=== PATIENT | male | born 1975 | race Caucasian/White ===

== ENCOUNTER 2019-05-16 05:14 | Emergency (ER) | payer MEDICARE, MEDICAID ==
[~2019-05-16] VITALS: Ht 170 cm; Wt 60.0 kg
[2019-05-16] MEDS ORDERED: LEVO25TA5 (05:35)
[2019-05-16] MEDS ORDERED: OMEG-105 (05:35)
[2019-05-16] MEDS ORDERED: METF500T (05:35)
[2019-05-16] MEDS ORDERED: OMEP40CA36 (05:35)
[2019-05-16] MEDS ORDERED: SIMV10TA3 (05:35)
[2019-05-16] MEDS ORDERED: ALEN70TA5 (05:35)
--- NOTE | 2019-05-16 06:16 | ED Fall/Injury ---
General Chief Complaint: Trauma-Non Activation Stated Complaint: FALL/ RT HAND PAIN, HIP AND LEG Nursing Triage Note: FALL RIGHT HIP/HAND PAIN Source: patient, family (dad) Exam Limitations: no limitations History of Present Illness Date Seen by Provider: May 16, 2019 Time Seen by Provider: 05:59 Initial Comments Patient presents to ER by private conveyance with dad and chief complaint that yesterday around 1800 will getting in the car he stepped down into a ditch and fell over onto his right side on outstretched right hand. Diagnosis morning that he had quite a bit of swelling in his right hand gave him a couple aspirin last night and has not put ice pack or compression dressing on it yet. No previous history of injury to the right hand. He does have a history of right hip fixation. He is nonverbal at baseline, cerebral palsy. Patient is not able to complain of numbness or tingling. He is very stoic with no external complaints of pain except on manipulation. Allergies and Home Medications Allergies Coded Allergies: No Known Drug Allergies (Unverified , 05/16/19) Patient Home Medication List Home Medication List Reviewed: Yes Review of Systems Review of Systems Constitutional: see HPI (systems per father, caregiver); No chills, No diaphoresis Eyes: Denies Blindness, Denies Drainage Ears, Nose, Mouth, Throat: denies ear pain, denies mouth pain Respiratory: No cough, No hemoptysis Gastrointestinal: No abdominal pain, No constipation, No diarrhea Genitourinary: No discharge, No dysuria Past Zkaclaq-Yhxhfj-Aazynq Hx Patient Social History Alcohol Use: Denies Use Recreational Drug Use: No Smoking Status: Never a Smoker 2nd Hand Smoke Exposure: No Recent Foreign Travel: No Contact w/Someone Who Travel: No Recent Infectious Disease Expo: No Recent Hopitalizations: No Physical Abuse: No Sexual Abuse: No Mistreated: No Fear: No Seasonal Allergies Seasonal Allergies: Yes Past Medical History Surgeries: Yes (RIGHT FEMUR, LEFT HIP) Orthopedic Respiratory: No Cardiac: Yes High Cholesterol Neurological: No Genitourinary: No Gastrointestinal: Yes Gastroesophageal Reflux Musculoskeletal: Yes Osteoporosis Endocrine: Yes Hypothyroidsim, Diabetes, Non-Insulin dep HEENT: No Cancer: No Psychosocial: No Integumentary: No Blood Disorders: No Physical Exam Vital Signs Vital Signs - First Documented 05/16/19 05:20 Temp 36.5 Pulse 86 Resp 18 B/P (MAP) 147/82 (103) Pulse Ox 99 O2 Delivery Room Air Capillary Refill : Less Than 3 Seconds Height, Weight, BMI Height: '" Weight: lbs. oz. kg; 20.00 BMI Method: General Appearance: WD/WN, no apparent distress HEENT: PERRL/EOMI, pharynx normal Cardiovascular: normal peripheral pulses, regular rate, rhythm Respiratory: no respiratory distress, no accessory muscle use Peripheral Pulses: 2+ Radial Pulses (R), 2+ Radial Pulses (L) Gastrointestinal: normal bowel sounds, non tender, soft Neurologic/Psychiatric: alert, normal mood/affect, oriented x 3 Skin: normal color, warm/dry Maria L Coma Score Best Eye Response: (4) Open Spontaneously Best Verbal Response: (5) Oriented Best Motor Response: (6) Obeys Commands Maria L Total: 15 Progress/Results/Core Measures Results/Orders Vital Signs/I&O 05/16/19 05:20 Temp 36.5 Pulse 86 Resp 18 B/P (MAP) 147/82 (103) Pulse Ox 99 O2 Delivery Room Air Blood Pressure Mean: 103 Progress Progress Note : Time: 06:17 Progress Note X-ray of right hip and right hand. Colles' splint with Cesar bandage, ice. Patient is stoic and does not appear to need anything for pain at this time. Diagnostic Imaging Diagonstic Imaging: Xray Plain Films/CT/US/NM/MRI: hand (r) Comments Small calcific fragment of undetermined timeline over the dorsal right carpals. Suspect occult fracture. NAME: [facility]PPE [facility] REC#: [id number] PT STATUS: REG ER : 1975 PHYSICIAN: TIFFANIE VANN MD ADMIT DATE: 05/16/19/ER Draft Date of Exam:05/16/19 HAND, RIGHT, 3 VIEWS INDICATION: Fall. Right hand pain. COMPARISON: None. FINDINGS: 4 views of the right hand were obtained and show no fractures, dislocations, or other acute bony abnormalities. Joint spaces are well maintained throughout. There is moderate generalized soft tissue swelling. No radiopaque foreign bodies are identified. IMPRESSION: 1. Moderate generalized soft tissue swelling, but no radiographic evidence of acute fracture or dislocation of the right hand. If pain or clinical concern for fracture persists, correlation with cross-sectional imaging is advised. Dictated on workstation # [id number] Dict: 05/16/19611 Trans: 05/16/19621 WILL [id number] Interpreted by: TAM BOWMAN MD Electronically signed by: Reviewed: Reviewed by Me Diagonstic Imaging: Xray Plain Films/CT/US/NM/MRI: hip (right) Comments Hardware appears to be in good position. No acute fracture dislocation or malalignment. Mild osteoarthritic changes noted. [facility] [place] [place] NAME: GIUSEPPE [facility] REC#: [id number] PT STATUS: DEP ER : 1975 PHYSICIAN: TIFFANIE VANN MD ADMIT DATE: 05/16/19/ER Draft Date of Exam:05/16/19 HIP, RIGHT, 2 VIEWS INDICATION: Fall. Right hip pain. COMPARISON: None FINDINGS: Two radiographic views of the right hip were obtained and show postsurgical changes of previous ORIF. Orthopedic dynamic screw with fusion plate is again identified. Hardware is intact and appears well-seated. There is no evidence of periprosthetic fracture or loosening. No unexpected radiopaque foreign bodies are seen. Right femoral acetabular joint space is maintained. Visualized portions of the osseous pelvis are intact. IMPRESSION: 1. Postsurgical changes of the proximal right femur. No evidence of periprosthetic fracture or loosening. 2. No other acute abnormality of the right hip. Dictated on workstation # [id number] Dict: 05/16/19614 Trans: 05/16/19622 WILL [id number] Interpreted by: TAM BOWMAN MD Electronically signed by: Reviewed: Reviewed by Me Departure Impression Primary Impression: Fall Qualified Codes: W19.XXXA - Unspecified fall, initial encounter Additional Impression: Closed hand fracture Qualified Codes: S62.91XA - Unspecified fracture of right wrist and hand, initial encounter for closed fracture Disposition: 01 HOME, SELF-CARE Condition: Stable Departure-Patient Inst. Decision time for Depature: 06:19 Referrals: MISSAEL VILLAR MD (PCP/Family) Primary Care Physician REGINO COLLINS MD Patient Instructions: Hand Fracture (DC) Add. Discharge Instructions: Keep the hand elevated above the level of the heart when possible. Ice applied for 20 minutes every 4 hours for the first 3 days. Keep the Colles' splint on with the Cesar bandage except for bathing and icing until cleared by the surgeon. Call Dr. Collins and request follow-up appointment in about one week for reexamination. Alternatively you can follow-up with the primary care doctor. Tylenol 1000 mg every 8 hours as needed. Ibuprofen 800 mg every 8 hours as needed. All discharge instructions reviewed with patient and/or family. Voiced understanding. Copy Copies To 1: REGINO COLLINS MD, TITUS J May 16, 2019 06:16
--- NOTE | 2019-05-16 06:22 | Diagnostic Imaging Report ---
INDICATION: Fall. Right hand pain. COMPARISON: None. FINDINGS: 4 views of the right hand were obtained and show no fractures, dislocations, or other acute bony abnormalities. Joint spaces are well maintained throughout. There is moderate generalized soft tissue swelling. No radiopaque foreign bodies are identified. IMPRESSION: 1. Moderate generalized soft tissue swelling, but no radiographic evidence of acute fracture or dislocation of the right hand. If pain or clinical concern for fracture persists, correlation with cross-sectional imaging is advised. Dictated by: Dictated on workstation # [id number]
--- NOTE | 2019-05-16 06:23 | Diagnostic Imaging Report ---
INDICATION: Fall. Right hip pain. COMPARISON: None FINDINGS: Two radiographic views of the right hip were obtained and show postsurgical changes of previous ORIF. Orthopedic dynamic screw with fusion plate is again identified. Hardware is intact and appears well-seated. There is no evidence of periprosthetic fracture or loosening. No unexpected radiopaque foreign bodies are seen. Right femoral acetabular joint space is maintained. Visualized portions of the osseous pelvis are intact. IMPRESSION: 1. Postsurgical changes of the proximal right femur. No evidence of periprosthetic fracture or loosening. 2. No other acute abnormality of the right hip. Dictated by: Dictated on workstation # [id number]
[2019-05-16 06:24] VITALS: BP 147/82
== END 2019-05-16 06:24 | disposition home or self-care (01) ==
LOC: EDUNIT# 05:14 → ER 05:17
DX: S62.91XA Unspecified fracture of right hand, initial encounter for closed fracture (principal); E11.9 Type 2 diabetes mellitus without complications; E78.00 Pure hypercholesterolemia, unspecified; E03.9 Hypothyroidism, unspecified; K21.9 Gastro-esophageal reflux disease without esophagitis; Z98.890 Other specified postprocedural states; V48.4XXA Person boarding or alighting a car injured in noncollision transport accident, initial encounter
CPT/HCPCS: 73130; 73502